=== PATIENT | male | born 2000 | race Caucasian/White ===

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

== ENCOUNTER 2018-07-15 07:58 | Emergency (ER) | payer BC ==
[2018-07-15 08:12] VITALS: BP 124/78
--- NOTE | 2018-07-15 08:25 | UC ---
Throat Pain/Nasal Cristobal HPI - HPI Summary HPI Summary: Pt presents with c/o post nasal drip X 1 day. Pt states he woke this morning with a ST. NO fever - History of Current Complaint Chief Complaint: UCGeneralIllness Stated Complaint: SINUS COMPLAINT, SORE THROAT Time Seen by Provider: 07/15/18 08:19 Hx Obtained From: Patient Onset/Duration: Sudden Onset, Lasting Days, Lasting Weeks Severity: Mild Pain Intensity: 0 Associated Signs & Symptoms: Positive: Nasal Discharge - Epiglottits Risk Factors Epiglottis Risk Factors: Sudden Onset - Allergies/Home Medications Allergies/Adverse Reactions: Allergies Allergy/AdvReac Type Severity Reaction Status Date / Time No Known Allergies Allergy Verified 07/15/18 08:08 PMH/Surg Hx/FS Hx/Imm Hx Previously Healthy: Yes Other History Of: Negative For: HIV, Hepatitis B, Hepatitis C, Anticoagulant Therapy - Surgical History Surgical History: None - Family History Known Family History: Negative: Cardiac Disease, Hypertension - Social History Occupation: Student Lives: Dormitory/Roommates Alcohol Use: Rare Substance Use Type: None Smoking Status (MU): Never Smoked Tobacco Have You Smoked in the Last Year: No - Immunization History Vaccination Up to Date: Yes Review of Systems All Other Systems Reviewed And Are Negative: Yes Constitutional: Positive: Negative Skin: Positive: Negative Eyes: Positive: Negative ENT: Positive: Sore Throat, Nasal Discharge Respiratory: Positive: Negative Cardiovascular: Positive: Negative Gastrointestinal: Positive: Negative Genitourinary: Positive: Negative Motor: Positive: Negative Neurovascular: Positive: Negative Musculoskeletal: Positive: Negative Neurological: Positive: Negative Psychological: Positive: Negative Is Patient Immunocompromised?: No Physical Exam Triage Information Reviewed: Yes Appearance: Well-Appearing Vital Signs: Initial Vital Signs Temp 97.6 F 07/15/18 08:09 Pulse 70 07/15/18 08:09 Resp 15 07/15/18 08:09 BP 124/78 07/15/18 08:09 Pulse Ox 100 07/15/18 08:09 Vital Signs Reviewed: Yes Eye Exam: Normal ENT Exam: Other ENT: Positive: Nasal congestion Dental Exam: Normal Neck exam: Normal Respiratory Exam: Normal Cardiovascular Exam: Normal Musculoskeletal Exam: Normal Neurological Exam: Normal Psychological Exam: Normal Skin Exam: Normal Throat Pain/Nasal Course/Dx - Differential Dx/Diagnosis Differential Diagnosis/HQI/PQRI: Influenza, Otitis Media, Pharyngitis, Sinusitis , URI Provider Diagnosis: Viral syndrome, Post-nasal drip Discharge - Sign-Out/Discharge Documenting (check all that apply): Patient Departure All imaging exams completed and their final reports reviewed: No Studies - Discharge Plan Condition: Stable Disposition: HOME Prescriptions: Fexofenadine/Pseudoephedrine [Mavis-D 24 Hour Tablet] 1 each PO DAILY #20 [id number].[id number] Patient Education Materials: Viral Syndrome (ED), Postnasal Drip (DC) Referrals: [facility] [place] [facility] REFERRAL [Outside] - If Needed No Primary Care Phys,NOPCP [Primary Care Provider] - - Billing Disposition and Condition Condition: STABLE Disposition: Home - Attestation Statements Provider Attestation: I was available for consult. This patient was seen by the YUE. The patient was not presented to, seen by, or examined by me. EK
== END 2018-07-15 08:38 | disposition home or self-care (01) ==
LOC: UCCORT 07:58
DX: B34.9 Viral infection, unspecified (principal); R09.82 Postnasal drip; J02.9 Acute pharyngitis, unspecified; R09.89 Other specified symptoms and signs involving the circulatory and respiratory systems
CPT/HCPCS: 99212; G0463